=== PATIENT | male | born 1970 | race Caucasian/White ===

== ENCOUNTER 2017-08-31 05:47 | Observation (INO) | payer SELFPAY ==
--- NOTE | 2017-08-31 05:53 | EDM.PDOC ---
ED HPI GENERAL MEDICAL PROBLEM - General Stated Complaint: TOOTH PAIN, DIZZINESS, PASSED OUT Time Seen by Provider: 08/31/17 05:48 Source of Information: Reports: Patient History Limitations: Reports: No Limitations - History of Present Illness INITIAL COMMENTS - FREE TEXT/NARRATIVE: 47 year old male presents to ED with complaints of Tooth pain and syncope. He is from [facility] and is here in [place] working in [employer]. He lives out of his truck. He states that he woke up at around 4:30 am this morning with severe pain in his left upper teeth. He has had mild intermittent pain of his left upper canine and first premolar for several months but this pain was worst than he has experience before. Once pain began he stepped out of his truck and felt dizzy then had unwitnessed LOC. When he regained consciousness he had a cut on the top of his head. He had complete memory up until the syncopal episode. He denies any tongue biting or urine/stool incontinence during the syncopal period and denies any confusion or vomiting since regaining consciousness. He felt nauseous prior to passing out and after waking up. He denies any known pmh and does not take any medications. He denies use of alcohol or tobacco. dental pain Pain Score (Numeric/FACES): 8 - Related Data Allergies Allergy/AdvReac Type Severity Reaction Status Date / Time No Known Allergies Allergy Verified 08/31/17 06:01 Home Meds: Home Meds . [No Known Home Meds] 08/31/17 [History] ED ROS GENERAL - Review of Systems Review Of Systems: See Below Constitutional: Reports: No Symptoms HEENT: Reports: Other (Tooth Pain) Respiratory: Reports: No Symptoms Cardiovascular: Reports: Lightheadedness, Syncope Endocrine: Reports: No Symptoms GI/Abdominal: Reports: No Symptoms : Reports: No Symptoms Musculoskeletal: Reports: No Symptoms Skin: Reports: No Symptoms Neurological: Reports: Dizziness Psychiatric: Reports: No Symptoms Hematologic/Lymphatic: Reports: No Symptoms Immunologic: Reports: No Symptoms ED EXAM, GENERAL - Physical Exam Exam: See Below Exam Limited By: No Limitations General Appearance: Alert, WD/WN, No Apparent Distress Eye Exam: Bilateral Eye: PERRL Ears: Normal External Exam, Normal Canal, Hearing Grossly Normal, Normal TMs Nose: Normal Inspection, Normal Mucosa, No Blood Throat/Mouth: Other (mutiple dental caries involving Left canine, Left 1st premolar and left 2nd premolar. No visible Abscess or induration. ) Head: Normocephalic, Other (small longitudinal abrasion, 2-3 cm long, present on top of skull, not actively bleeding ) Neck: Normal Inspection, Supple, Non-Tender, Full Range of Motion Respiratory/Chest: No Respiratory Distress, Lungs Clear, Normal Breath Sounds Cardiovascular: Normal Peripheral Pulses, Regular Rate, Rhythm, No Edema Peripheral Pulses: 2+: Radial (L), Radial (R) GI/Abdominal: Normal Bowel Sounds, Soft, Non-Tender, No Organomegaly, No Distention Back Exam: Normal Inspection Extremities: Normal Inspection, Normal Capillary Refill Neurological: Alert, Oriented, CN II-XII Intact, Normal Cognition, Normal Gait Psychiatric: Normal Affect, Normal Mood Skin Exam: Warm, Dry, Intact, Normal Color, No Rash Lymphatic: No Adenopathy Course - Vital Signs Last Recorded V/S: Last Vital Signs Temp 36 C 08/31/17 06:01 Pulse 56 L 08/31/17 06:37 Resp 18 08/31/17 06:37 BP 101/63 08/31/17 06:37 Pulse Ox 99 08/31/17 06:37 Orthostatic Blood Pressure [ 89/63 Standing] Orthostatic Blood Pressure [ 94/64 Sitting] Orthostatic Blood Pressure [ 97/63 Supine] - Orders/Labs/Meds Orders: Active Orders 24 hr Category Date Time Status EKG 12 Lead [EKG Documentation Completion] [RC] STAT Care 08/31/17 06:05 Active Orthostatic Vital Signs [RC] ASDIRECTED Care 08/31/17 06:10 Active Chest 1V Frontal [CR] Stat Exams 08/31/17 06:04 Taken Head wo Cont [CT] Stat Exams 08/31/17 06:04 Taken UA W/MICROSCOPIC [URIN] Stat Lab 08/31/17 06:10 Uncollected Clindamycin Phosphate in D5W [Cleocin in D5W] 300 mg Med 08/31/17 06:59 Active Premix Bag 1 bag IV ONETIME Medication Orders Clindamycin Phosphate 300 mg/ (Premix) 50 mls @ 150 mls/hr IV ONETIME ONE Stop: 08/31/17 07:18 Last Admin: 08/31/17 07:07 Dose: 150 mls/hr Labs: Laboratory Tests 08/31/17 08/31/17 Range/Units 06:06 06:06 WBC 7.56 (4.0-11.0) K/uL RBC 5.13 (4.50-5.90) M/uL Hgb 16.6 (13.0-17.0) g/dL Hct 46.5 (38.0-50.0) % MCV 90.6 (80.0-98.0) fL MCH 32.4 H (27.0-32.0) pg MCHC 35.7 (31.0-37.0) g/dL RDW Std Deviation 42.7 (28.0-62.0) fl RDW Coeff of Shruti 13 (11.0-15.0) % Plt Count 178 (150-400) K/uL MPV 10.30 (7.40-12.00) fL Neut % (Auto) 60.0 (48.0-80.0) % Lymph % (Auto) 28.4 (16.0-40.0) % [place] % (Auto) 7.5 (0.0-15.0) % Eos % (Auto) 3.4 (0.0-7.0) % Baso % (Auto) 0.7 (0.0-1.5) % Neut # (Auto) 4.5 (1.4-5.7) K/uL Lymph # (Auto) 2.2 (0.6-2.4) K/uL [place] # (Auto) 0.6 (0.0-0.8) K/uL Eos # (Auto) 0.3 (0.0-0.7) K/uL Baso # (Auto) 0.1 (0.0-0.1) K/uL Nucleated RBC % 0.0 /100WBC Nucleated RBCs # 0 K/uL Sodium 139 (136-146) mmol/L Potassium 3.7 (3.5-5.1) mmol/L Chloride 105 (98-110) mmol/L Carbon Dioxide 27 (21-31) mmol/L BUN 15 (6.0-23.0) mg/dL Creatinine 1.0 (0.6-1.5) mg/dL Est Cr Clr Drug Dosing 97.26 mL/min Estimated GFR (MDRD) > 60.0 ml/min Glucose 113 H (60-110) mg/dL Calcium 9.1 (8.8-10.8) mg/dL Total Bilirubin 1.0 (0.1-1.5) mg/dL AST 20 (5-40) IU/L ALT 20 (8-54) IU/L Alkaline Phosphatase 53 (40-150) Troponin I < 0.10 (0.0-0.29) NG/ML Total Protein 7.1 (6.0-8.0) g/dL Albumin 4.2 (3.5-5.0) g/dL Globulin 2.9 (2.0-3.5) g/dL Albumin/Globulin Ratio 1.4 (1.3-2.8) Meds: Medications Generic Name Dose Route Start Last Admin Trade Name Freq PRN Reason Stop Dose Admin Clindamycin Phosphate 300 mg/ 50 mls @ 150 mls/hr 08/31/17 06:59 08/31/17 07: 07 Premix IV 08/31/17 07:18 150 mls/hr ONETIME ONE Administration Discontinued Medications Generic Name Dose Route Start Last Admin Trade Name Freq PRN Reason Stop Dose Admin Sodium Chloride 1,000 mls @ 999 mls/hr 08/31/17 06:09 08/31/17 06:10 Normal Saline IV 08/31/17 07:09 999 mls/hr .Bolus ONE Administration Clindamycin Phosphate 300 mg/ 52 mls @ 100 mls/hr 08/31/17 07:00 08/31/17 07: 04 Sodium Chloride IV Not Given Q6H HARINDER Departure - Departure Time of Disposition: 07:15 Disposition: Refer to Observation Clinical Impression: Syncope, Hypotension, Tooth pain - Discharge Information Referrals: PCP,None [Primary Care Provider] - Additional Instructions: The following information is given to patients seen in the emergency department who are being discharged to home. This information is to outline your options for follow-up care. We provide all patients seen in our emergency department with a follow-up referral. The need for follow-up, as well as the timing and circumstances, are variable depending upon the specifics of your emergency department visit. If you don't have a primary care physician on staff, we will provide you with a referral. We always advise you to contact your personal physician following an emergency department visit to inform them of the circumstance of the visit and for follow-up with them and/or the need for any referrals to a consulting specialist. The emergency department will also refer you to a specialist when appropriate. This referral assures that you have the opportunity for followup care with a specialist. All of these measure are taken in an effort to provide you with optimal care, which includes your followup. Under all circumstances we always encourage you to contact your private physician who remains a resource for coordinating your care. When calling for followup care, please make the office aware that this follow-up is from your recent emergency room visit. If for any reason you are refused follow-up, please contact the [facility] emergency department at and asked to speak to the emergency department charge nurse. - Problem List Review Problem List Initiated/Reviewed/Updated: Yes - My Orders Last 24 Hours: My Active Orders 08/31/17 06:04 Chest 1V Frontal [CR] Stat Head wo Cont [CT] Stat 08/31/17 06:05 EKG 12 Lead [EKG Documentation Completion] [RC] STAT 08/31/17 06:59 Clindamycin Phosphate in D5W [Cleocin in D5W] 300 mg Premix Bag 1 bag IV ONETIME - Assessment/Plan Last 24 Hours: My Active Orders 08/31/17 06:04 Chest 1V Frontal [CR] Stat Head wo Cont [CT] Stat 08/31/17 06:05 EKG 12 Lead [EKG Documentation Completion] [RC] STAT 08/31/17 06:59 Clindamycin Phosphate in D5W [Cleocin in D5W] 300 mg Premix Bag 1 bag IV ONETIME Assessment:: Diagnostics: CMP, Troponin, UA, EKG, CXR, CT Head wo Contrast Therapeutics: IVF, Clindamycin 300 mg IV single dose Assessment: 1. Syncope 2. Hypotension 3. Head Abrasion 4. Tooth Pain Plan: Admit to observation with telemetry - patient has been accepted by Dr. Jerez
[2017-08-31] MEDS ORDERED: Sodium Chloride 0.9% 1,000 ML IV ONE (06:09)
[2017-08-31 06:36] LABS: CHLORIDE,CL 105 mmol/L (98-110); SODIUM,NA 139 mmol/L (136-146)
[2017-08-31] MEDS ORDERED: Clindamycin Phosphate in D5W 300 MG in Premix Bag 1 BAG IV ONE ×2 (06:59)
[2017-08-31] MEDS ORDERED: Morphine 2 MG/ML Syringe IVPUSH PRN (09:44)
[2017-08-31] MEDS ORDERED: Sodium Chloride 0.9% 10 ML Syringe FLUSH PRN (09:44)
[2017-08-31] MEDS ORDERED: Albuterol/Ipratropium 3.0-0.5 MG/3 ML Neb Soln NEB PRN (09:44)
[2017-08-31] MEDS ORDERED: Acetaminophen 325 MG Tab PO PRN (09:44)
[2017-08-31] MEDS ORDERED: Sodium Chloride 0.9% 2.5 ML Syringe FLUSH PRN (09:44)
[2017-08-31] MEDS ORDERED: Ondansetron 4 MG/2 ML SDV IVPUSH PRN (09:44)
[2017-08-31] MEDS: Clindamycin Phosphate in D5W 300 MG in Premix Bag 1 BAG IV SCH ×4 (13:15→18:18)
--- NOTE | 2017-08-31 14:27 | PCM.HP ---
<Shania Canales - Last Filed: 08/31/17 14:22> H&P History of Present Illness - General Date of Service: 08/31/17 Admit Problem/Dx: Admission Diagnosis/Problem Admission Diagnosis/Problem Hypotension - History of Present Illness Initial Comments - Free Text/Narative: 47 year old male presents to ED with complaints of Tooth pain and syncope x 2. He is from [facility] and is here in [place] working in [employer]. He lives out of his truck. He states that he woke up at around 4:30 am this morning with severe pain in his left upper teeth. He has had mild intermittent pain of his left upper canine and first premolar for several months but this pain was worst than he has experience before. Once pain began he stepped out of his truck and felt dizzy then had unwitnessed LOC. When he regained consciousness he had a cut on the top of his head. he does not know if he fell. He had complete memory up until the syncopal episode. He denies any tongue biting or urine/stool incontinence during the syncopal period and denies any confusion or vomiting since regaining consciousness. He felt nauseous prior to passing out and after waking up. He denies any known pmh and does not take any medications. He denies use of alcohol, tobacco or recreational drugs. He never had symptoms like this before. He does not have any other medical comorbidiites such as DM, CAD, COPD or other medical illness. He is otherwise healthy. He has not had any surgeries in the past. dental pain Pain Score (Numeric/FACES): 8 - Related Data Allergies/Adverse Reactions: Allergies Allergy/AdvReac Type Severity Reaction Status Date / Time No Known Allergies Allergy Verified 08/31/17 06:01 Home Medications: Home Meds . [No Known Home Meds] 08/31/17 [History] Past Medical History HEENT History: Reports: None Cardiovascular History: Reports: None Respiratory History: Reports: None Gastrointestinal History: Reports: None Genitourinary History: Reports: None Musculoskeletal History: Reports: None Neurological History: Reports: None Psychiatric History: Reports: None Endocrine/Metabolic History: Reports: None Hematologic History: Reports: None Immunologic History: Reports: None Oncologic (Cancer) History: Reports: None Dermatologic History: Reports: None - Infectious Disease History Infectious Disease History: Reports: None - Past Surgical History Head Surgeries/Procedures: Reports: None Social & Family History - Family History Family Medical History: Noncontributory - Tobacco Use Smoking Status *Q: Never Smoker Second Hand Smoke Exposure: No - Caffeine Use Caffeine Use: Reports: Coffee - Recreational Drug Use Recreational Drug Use: No H&P Review of Systems - Review of Systems: Review Of Systems: See Below General: Reports: No Symptoms HEENT: Reports: Other (left sided tooth ache. ) Pulmonary: Reports: No Symptoms Cardiovascular: Reports: No Symptoms Gastrointestinal: Reports: No Symptoms Genitourinary: Reports: No Symptoms Musculoskeletal: Reports: No Symptoms Skin: Reports: No Symptoms Psychiatric: Reports: No Symptoms Neurological: Reports: No Symptoms Immunologic: Reports: No Symptoms Exam - Exam Exam: See Below - Vital Signs Vital Signs: Last Vital Signs Temp 97.5 F 08/31/17 07:50 Pulse 76 08/31/17 07:50 Resp 18 08/31/17 07:50 BP 108/74 08/31/17 07:50 Pulse Ox 98 08/31/17 07:50 Weight: 187 lb 8 oz - Exam General: Alert, Oriented HEENT: EOMI, Hearing Intact, Other (left side tooth ache and tendeness. ginival inflammation. No evidence of fluctuant mass) Neck: Supple, Trachea Midline Lungs: Clear to Auscultation, Normal Respiratory Effort Cardiovascular: Regular Rate, Regular Rhythm GI/Abdominal Exam: Normal Bowel Sounds, Soft Back Exam: Normal Inspection Extremities: Normal Inspection Skin: Warm, Dry, Intact Neurological: Cranial Nerves Intact Neuro Extensive - Motor, Sensory, Reflexes: CN II-XII Intact Psychiatric: Alert, Normal Affect, Normal Mood - Patient Data Lab Results Last 24 hrs: Laboratory Results - last 24 hr 08/31/17 08/31/17 08/31/17 Range/Units 11:26 11:31 13:13 POC Glucose 86 (60-110) mg/dL Troponin I < 0.10 (0.0-0.29) NG/ML Urine Color YELLOW Urine Appearance CLEAR Urine pH 7.0 (5.0-8.0) Ur Specific [place] <= 1.005 (1.001-1.035) Urine Protein NEGATIVE (NEGATIVE) mg/dL Urine Glucose (UA) NEGATIVE (NEGATIVE) mg/dL Urine Ketones NEGATIVE (NEGATIVE) mg/dL Urine Occult Blood NEGATIVE (NEGATIVE) Urine Nitrite NEGATIVE (NEGATIVE) Urine Bilirubin NEGATIVE (NEGATIVE) Urine Urobilinogen 0.2 (<2.0) EU/dL Ur Leukocyte Esterase NEGATIVE (NEGATIVE) Urine RBC 0-1 (0-2/HPF) Urine WBC 0-1 (0-5/HPF) Ur Epithelial Cells RARE (NONE-FEW) Urine Bacteria RARE (NEGATIVE) Result Diagrams: 08/31/17 06:06 08/31/17 06:06 *Q Meaningful Use (ADM) - VTE *Q VTE Criteria *Q: - Stroke *Q Stroke Criteria *Q: - AMI *Q AMI Criteria *Q: Problem List Initiated/Reviewed/Updated: Yes Orders Last 24hrs: Active Orders 24 hr Category Date Time Status Patient Status [ADT] Routine ADT 08/31/17 09:44 Active Bedrest Bathroom Privileges [RC] ASDIRECTED Care 08/31/17 09:44 Active Blood Glucose Check, Bedside [RC] WITHMEALSANDBED Care 08/31/17 09:44 Active Cardiac Monitoring [RC] CONTINUOUS Care 08/31/17 09:47 Active Oxygen Therapy [RC] PRN Care 08/31/17 09:44 Active Pulse Oximetry [RC] PRN Care 08/31/17 09:48 Active RT Aerosol Therapy [RC] ASDIRECTED Care 08/31/17 09:50 Active Telemetry Monitoring [Cardiac Monitoring] [RC] . Care 08/31/17 09:52 Active DIRECTED VTE/DVT Education [RC] PER UNIT ROUTINE Care 08/31/17 09:44 Active Vital Signs [RC] Q4H Care 08/31/17 09:44 Active 2 Gram Sodium Diet [DIET] Diet 08/31/17 Breakfast Active BASIC METABOLIC PANEL,BMP [CHEM] AM Lab 09/01/17 05:11 Ordered BASIC METABOLIC PANEL,BMP [CHEM] AM Lab 09/02/17 05:11 Ordered BASIC METABOLIC PANEL,BMP [CHEM] AM Lab 09/03/17 05:11 Ordered BASIC METABOLIC PANEL,BMP [CHEM] AM Lab 09/04/17 05:11 Ordered CBC W/O DIFF,HEMOGRAM [HEME] AM Lab 09/01/17 05:11 Ordered CBC W/O DIFF,HEMOGRAM [HEME] AM Lab 09/02/17 05:11 Ordered CBC W/O DIFF,HEMOGRAM [HEME] AM Lab 09/03/17 05:11 Ordered TROPONIN I [CHEM] Q6H Lab 08/31/17 19:02 Ordered Acetaminophen [Tylenol] Med 08/31/17 09:44 Active 650 mg PO Q4H PRN Albuterol/Ipratropium [DuoNeb 3.0-0.5 MG/3 ML] Med 08/31/17 09:44 Active 3 ml NEB Q4HRRT PRN Clindamycin Phosphate in D5W [Cleocin in D5W] 300 mg Med 08/31/17 13:15 Active Premix Bag 1 bag IV Q6H Enoxaparin [Lovenox] Med 09/01/17 09:00 Active 40 mg SUBCUT DAILY Morphine Med 08/31/17 09:44 Active 2 mg IVPUSH Q2H PRN Ondansetron [Zofran] Med 08/31/17 09:44 Active 4 mg IVPUSH Q4H PRN Sodium Chloride 0.9% [Saline Flush] Med 08/31/17 09:44 Active 10 ml FLUSH ASDIRECTED PRN Sodium Chloride 0.9% [Saline Flush] Med 08/31/17 09:44 Active 2.5 ml FLUSH ASDIRECTED PRN Peripheral IV Insertion Adult [OM.PC] Routine Oth 08/31/17 09:44 Ordered Saline Lock Insert [OM.PC] Routine Oth 08/31/17 09:44 Ordered Resuscitation Status Routine Resus Stat 08/31/17 09:44 Ordered Medication Orders Acetaminophen (Tylenol) 650 mg PO Q4H PRN PRN Reason: Pain (Mild 1-3)/fever Last Admin: 08/31/17 12:08 Dose: 650 mg Albuterol/Ipratropium (Duoneb 3.0-0.5 Mg/3 Ml) 3 ml NEB Q4HRRT PRN PRN Reason: Shortness Of Breath/wheezing Enoxaparin Sodium (Lovenox) 40 mg SUBCUT DAILY HARINDER Clindamycin Phosphate 300 mg/ (Premix) 50 mls @ 100 mls/hr IV Q6H HARINDER Last Admin: 08/31/17 13:15 Dose: 100 mls/hr Morphine Sulfate (Morphine) 2 mg IVPUSH Q2H PRN PRN Reason: Pain (severe 7-10) Stop: 09/01/17 09:49 Ondansetron HCl (Zofran) 4 mg IVPUSH Q4H PRN PRN Reason: Nausea Sodium Chloride (Saline Flush) 10 ml FLUSH ASDIRECTED PRN PRN Reason: Keep Vein Open Sodium Chloride (Saline Flush) 2.5 ml FLUSH ASDIRECTED PRN PRN Reason: Keep Vein Open Assessment/Plan Comment:: 47 yo male admitted for tooth pulpitiis/ givngivitis VSS: no fever, no tachycardia. wbc normal. Continue IVF and IV clindaymcin Sycope: resolved. <Ge Jerez - Last Filed: 08/31/17 22:15> H&P History of Present Illness - General Admit Problem/Dx: Admission Diagnosis/Problem Admission Diagnosis/Problem Hypotension Exam - Vital Signs Vital Signs: Last Vital Signs Temp 97.8 F 08/31/17 20:00 Pulse 70 08/31/17 20:00 Resp 18 08/31/17 20:00 BP 107/71 08/31/17 20:00 Pulse Ox 97 08/31/17 20:00 Orthostatic Blood Pressure [ 94/59 Standing] Orthostatic Blood Pressure [ 94/55 Sitting] Orthostatic Blood Pressure [ 85/35 Supine] - Patient Data Lab Results Last 24 hrs: Laboratory Results - last 24 hr 08/31/17 08/31/17 08/31/17 Range/Units 11:26 11:31 13:13 POC Glucose 86 (60-110) mg/dL Troponin I < 0.10 (0.0-0.29) NG/ML Urine Color YELLOW Urine Appearance CLEAR Urine pH 7.0 (5.0-8.0) Ur Specific [place] <= 1.005 (1.001-1.035) Urine Protein NEGATIVE (NEGATIVE) mg/dL Urine Glucose (UA) NEGATIVE (NEGATIVE) mg/dL Urine Ketones NEGATIVE (NEGATIVE) mg/dL Urine Occult Blood NEGATIVE (NEGATIVE) Urine Nitrite NEGATIVE (NEGATIVE) Urine Bilirubin NEGATIVE (NEGATIVE) Urine Urobilinogen 0.2 (<2.0) EU/dL Ur Leukocyte Esterase NEGATIVE (NEGATIVE) Urine RBC 0-1 (0-2/HPF) Urine WBC 0-1 (0-5/HPF) Ur Epithelial Cells RARE (NONE-FEW) Urine Bacteria RARE (NEGATIVE) 08/31/17 08/31/17 Range/Units 17:17 18:50 POC Glucose 75 (60-110) mg/dL Troponin I < 0.10 (0.0-0.29) NG/ML Urine Color Urine Appearance Urine pH (5.0-8.0) Ur Specific [place] (1.001-1.035) Urine Protein (NEGATIVE) mg/dL Urine Glucose (UA) (NEGATIVE) mg/dL Urine Ketones (NEGATIVE) mg/dL Urine Occult Blood (NEGATIVE) Urine Nitrite (NEGATIVE) Urine Bilirubin (NEGATIVE) Urine Urobilinogen (<2.0) EU/dL Ur Leukocyte Esterase (NEGATIVE) Urine RBC (0-2/HPF) Urine WBC (0-5/HPF) Ur Epithelial Cells (NONE-FEW) Urine Bacteria (NEGATIVE) Result Diagrams: 08/31/17 06:06 08/31/17 06:06 *Q Meaningful Use (ADM) - VTE *Q VTE Criteria *Q: - Stroke *Q Stroke Criteria *Q: - AMI *Q AMI Criteria *Q: - Problem List (1) Hypotension SNOMED Code(s): 46339799 ICD Code: I95.9 - HYPOTENSION, UNSPECIFIED Status: Acute Current Visit: Yes (2) Syncope SNOMED Code(s): 883996399 ICD Code: R55 - SYNCOPE AND COLLAPSE Status: Acute Current Visit: Yes (3) Tooth pain SNOMED Code(s): 38602736 ICD Code: K08.89 - OTHER SPECIFIED DISORDERS OF TEETH AND SUPPORTING STRUCTURES Status: Acute Current Visit: Yes Problem List Initiated/Reviewed/Updated: Yes Orders Last 24hrs: Active Orders 24 hr Category Date Time Status Patient Status [ADT] Routine ADT 08/31/17 09:44 Active Bedrest Bathroom Privileges [RC] ASDIRECTED Care 08/31/17 09:44 Active Blood Glucose Check, Bedside [RC] WITHMEALSANDBED Care 08/31/17 09:44 Active Neuro Check [RC] Q2HR Care 08/31/17 18:08 Active Orthostatic Vital Signs [RC] ASDIRECTED Care 08/31/17 18:10 Active Oxygen Therapy [RC] PRN Care 08/31/17 09:44 Active Pulse Oximetry [RC] PRN Care 08/31/17 09:48 Active RT Aerosol Therapy [RC] ASDIRECTED Care 08/31/17 09:50 Active Telemetry Monitoring [Cardiac Monitoring] [RC] Q8H Care 08/31/17 09:52 Active VTE/DVT Education [RC] PER UNIT ROUTINE Care 08/31/17 09:44 Active Vital Signs [RC] Q4H Care 08/31/17 09:44 Active 2 Gram Sodium Diet [DIET] Diet 08/31/17 Breakfast Active Echo 2D wo Cont [US] Routine Exams 08/31/17 18:06 Ordered VL Duplex Carotid Ltd Lt [US] Routine Exams 08/31/17 18:07 Ordered VL Duplex Carotid Ltd Rt [US] Routine Exams 08/31/17 18:07 Ordered BASIC METABOLIC PANEL,BMP [CHEM] AM Lab 09/01/17 05:11 Ordered BASIC METABOLIC PANEL,BMP [CHEM] AM Lab 09/02/17 05:11 Ordered BASIC METABOLIC PANEL,BMP [CHEM] AM Lab 09/03/17 05:11 Ordered BASIC METABOLIC PANEL,BMP [CHEM] AM Lab 09/04/17 05:11 Ordered CBC W/O DIFF,HEMOGRAM [HEME] AM Lab 09/01/17 05:11 Ordered CBC W/O DIFF,HEMOGRAM [HEME] AM Lab 09/02/17 05:11 Ordered CBC W/O DIFF,HEMOGRAM [HEME] AM Lab 09/03/17 05:11 Ordered LIPID PANEL [CHEM] Routine Lab 09/01/17 05:10 Ordered Acetaminophen [Tylenol] Med 08/31/17 09:44 Active 650 mg PO Q4H PRN Albuterol/Ipratropium [DuoNeb 3.0-0.5 MG/3 ML] Med 08/31/17 09:44 Active 3 ml NEB Q4HRRT PRN Clindamycin Phosphate in D5W [Cleocin in D5W] 300 mg Med 08/31/17 13:15 Active Premix Bag 1 bag IV Q6H Enoxaparin [Lovenox] Med 09/01/17 09:00 Active 40 mg SUBCUT DAILY Ketorolac [Toradol] Med 08/31/17 19:34 Active 30 mg IVPUSH Q6H PRN Morphine Med 08/31/17 09:44 Active 2 mg IVPUSH Q2H PRN Ondansetron [Zofran] Med 08/31/17 09:44 Active 4 mg IVPUSH Q4H PRN Sodium Chloride 0.9% [Normal Saline] 1,000 ml Med 08/31/17 19:45 Active IV ASDIRECTED Sodium Chloride 0.9% [Saline Flush] Med 08/31/17 09:44 Active 10 ml FLUSH ASDIRECTED PRN Sodium Chloride 0.9% [Saline Flush] Med 08/31/17 09:44 Active 2.5 ml FLUSH ASDIRECTED PRN Peripheral IV Insertion Adult [OM.PC] Routine Oth 08/31/17 09:44 Ordered Saline Lock Insert [OM.PC] Routine Oth 08/31/17 09:44 Ordered Resuscitation Status Routine Resus Stat 08/31/17 09:44 Ordered Medication Orders Acetaminophen (Tylenol) 650 mg PO Q4H PRN PRN Reason: Pain (Mild 1-3)/fever Last Admin: 08/31/17 12:08 Dose: 650 mg Albuterol/Ipratropium (Duoneb 3.0-0.5 Mg/3 Ml) 3 ml NEB Q4HRRT PRN PRN Reason: Shortness Of Breath/wheezing Enoxaparin Sodium (Lovenox) 40 mg SUBCUT DAILY [facility] Clindamycin Phosphate 300 mg/ (Premix) 50 mls @ 100 mls/hr IV Q6H [facility] Last Admin: 08/31/17 18:18 Dose: 100 mls/hr Infusion: 08/31/17 13:45 Dose: 100 mls/hr Admin: 08/31/17 13:15 Dose: 100 mls/hr Sodium Chloride (Normal Saline) 1,000 mls @ 999 mls/hr IV ASDIRECTED [facility] Ketorolac Tromethamine (Toradol) 30 mg IVPUSH Q6H PRN PRN Reason: Pain Stop: 09/05/17 19:34 Morphine Sulfate (Morphine) 2 mg IVPUSH Q2H PRN PRN Reason: Pain (severe 7-10) Stop: 09/01/17 09:49 Ondansetron HCl (Zofran) 4 mg IVPUSH Q4H PRN PRN Reason: Nausea Sodium Chloride (Saline Flush) 10 ml FLUSH ASDIRECTED PRN PRN Reason: Keep Vein Open Sodium Chloride (Saline Flush) 2.5 ml FLUSH ASDIRECTED PRN PRN Reason: Keep Vein Open Assessment/Plan Comment:: A/p syncope- likely due to hypotensionadmit patient to telemetry to monitor for arrhythmia, orthostatic Vs, urine toxicology, carotid doppler , serial troponins , neurochecks q2h , cardiac echo , iv fluids Hypotension: iv fluids, f/up Bp Tooth infection: clindamycin 600mg iv q8h , toradol 30 mg iv q 6 hprn for pain Dvt prof: heparin sq Head trauma- neurochecks q2h for 24h Patient seen and examined . Discussed patient with resident.
[2017-08-31] MEDS ORDERED: Ketorolac 30 MG/ML SDV IVPUSH PRN (19:34)
[2017-08-31] MEDS ORDERED: Sodium Chloride 0.9% 1,000 ML IV SCH (19:45)
[2017-09-01] MEDS: Clindamycin Phosphate in D5W 300 MG in Premix Bag 1 BAG IV SCH ×4 (00:55→06:46)
[2017-09-01 06:58] LABS: CHLORIDE,CL 108 mmol/L (98-110); SODIUM,NA 140 mmol/L (136-146)
[2017-09-01] MEDS ORDERED: Sodium Chloride 0.9% 1,000 ML IV SCH (08:45)
[2017-09-01] MEDS ORDERED: Enoxaparin 40 MG/0.4 ML Syringe SUBCUT SCH (09:00)
--- NOTE | 2017-09-01 11:56 | CR ---
EXAM DATE: 08/31/17 PATIENT'S AGE: 47 Patient: JUAN CABALLERO Facility: [place], [place] Site . Site : 1970 Study: XRay Chest [id number] 6:33:00 AM Ordering Physician: Sarah Patel Final Report: Indication: Syncope Technique: Chest 1 view Comparison: None Findings/Impression: Cardiovascular and mediastinum: Heart size and vasculature are normal in caliber and appearance. Mediastinum is within normal limits. Lungs and pleural space: Lungs are clear. No sign of infiltrate or mass. No sign of pleural effusion. No pneumothorax. Bones and soft tissues: No significant findings. Dictated by Jessy Pinto MD @ Aug 31 2017 6:52AM (Electronic Signature) Report Signed by Proxy. DOLORES
--- NOTE | 2017-09-01 11:57 | CT ---
EXAM DATE: 08/31/17 PATIENT'S AGE: 47 Patient: JUAN CABALLERO Facility: [place], [place] Site . Site : 1970 Study: CT Head [id number] 6:34:35 AM Ordering Physician: Sarah Patel Final Report: INDICATION: Syncope. TECHNIQUE: CT Head without contrast. COMPARISON: None FINDINGS: CSF spaces: Within normal limits for age. Brain parenchyma: The hutson-white differentiation is normal. No sign of mass, hemorrhage, or midline shift. Skull base and calvarium: Moderate mucosal thickening and several ethmoid air cells. The remainder of the visualized paranasal sinuses and mastoid air cells are clear. The visualized orbits are grossly unremarkable. No skull fractures. IMPRESSION: No acute intracranial abnormality. Dictated by Nabeel Austin MD @ 08/31/2017 7:01:18 AM Dictated by: Nabeel Austin MD @ 08/31/2017 07:01:31 (Electronic Signature) Report Signed by Proxy. DOLORES
--- NOTE | 2017-09-01 14:44 | PCM.DCSUM1 ---
<Shania Canales - Last Filed: 09/01/17 15:20> Discharge Summary - Hospital Course Free Text/Narrative:: 47 yo male admitted for syncope x 2 . He does not recall if lost consciousness. He was monitored on telemetry ( no arrythmias noted). His EKG unremarkable. His blood pressure is found to be on the low side.90/ 50 s HR 50's. His ortho stats normal. ECHO and carotid us pending. He was found to have left sided tooth infection whcih was treated with I.V clindamycin. He improved. He was discharged in stable conditon. VSS . He is to follow up with me in clinic . He is discharged with clindamycin. He is to follow up with dentist in one week or sooner. - Discharge Data Discharge Date: 09/01/17 Discharge Disposition: Home, Self-Care 01 Condition: Good - Discharge Plan Prescriptions/Med Rec: Clindamycin HCl [Cleocin HCl] 300 mg PO TID #24 capsule Ibuprofen 600 mg PO TID #30 tablet Home Medications: Home Meds Clindamycin HCl [Cleocin HCl] 300 mg PO TID #24 capsule 09/01/17 [Rx] Ibuprofen 600 mg PO TID #30 tablet 09/01/17 [Rx] Patient Handouts: Ibuprofen tablets and capsules, Clindamycin capsules Forms: ED Department Discharge Referrals: Shania Canales MD [Resident] - 09/12/17 2:30 pm - General Info Subjective Update: No episode of syncope or lightheadeness. - Review of Systems General: Reports: No Symptoms HEENT: Reports: No Symptoms Pulmonary: Reports: No Symptoms Cardiovascular: Reports: No Symptoms Gastrointestinal: Reports: No Symptoms Musculoskeletal: Reports: No Symptoms Skin: Reports: No Symptoms Neurological: Reports: No Symptoms - Patient Data Vitals - Most Recent: Last Vital Signs Temp 98.2 F 09/01/17 07:58 Pulse 72 09/01/17 07:58 Resp 16 09/01/17 04:00 BP 94/55 L 09/01/17 07:58 Pulse Ox 93 L 09/01/17 04:00 Orthostatic Blood Pressure [ 102/77 Standing] Orthostatic Blood Pressure [ 105/61 Sitting] Orthostatic Blood Pressure [ 99/57 Supine] Weight - Most Recent: 187 lb 8 oz I&O - Last 24 hours: Intake & Output 08/31/17 09/01/17 09/01/17 22:59 06:59 14:59 Intake Total 670 50 Output Total 380 300 Balance 290 -250 Lab Results - Last 24 hrs: Laboratory Results - last 24 hr 08/31/17 08/31/17 08/31/17 Range/Units 17:17 18:50 20:49 WBC (4.0-11.0) K/uL RBC (4.50-5.90) M/uL Hgb (13.0-17.0) g/dL Hct (38.0-50.0) % MCV (80.0-98.0) fL MCH (27.0-32.0) pg MCHC (31.0-37.0) g/dL RDW Std Deviation (28.0-62.0) fl RDW Coeff of Shruti (11.0-15.0) % Plt Count (150-400) K/uL MPV (7.40-12.00) fL Nucleated RBC % /100WBC Nucleated RBCs # K/uL Sodium (136-146) mmol/L Potassium (3.5-5.1) mmol/L Chloride (98-110) mmol/L Carbon Dioxide (21-31) mmol/L BUN (6.0-23.0) mg/dL Creatinine (0.6-1.5) mg/dL Est Cr Clr Drug Dosing mL/min Estimated GFR (MDRD) ml/min Glucose (60-110) mg/dL POC Glucose 75 83 (60-110) mg/dL Calcium (8.8-10.8) mg/dL Troponin I < 0.10 (0.0-0.29) NG/ML Triglycerides (10-190) mg/dL Cholesterol (131-240) mg/dL LDL Cholesterol, Calc (60-180) mg/dL VLDL Cholesterol (5-55) mg/dL HDL Cholesterol (40-80) mg/dL Cholesterol/HDL Ratio (3.3-6.0) 09/01/17 09/01/17 09/01/17 Range/Units 05:36 06:07 06:07 WBC 6.68 (4.0-11.0) K/uL RBC 4.76 (4.50-5.90) M/uL Hgb 15.1 (13.0-17.0) g/dL Hct 43.8 (38.0-50.0) % MCV 92.0 (80.0-98.0) fL MCH 31.7 (27.0-32.0) pg MCHC 34.5 (31.0-37.0) g/dL RDW Std Deviation 43.8 (28.0-62.0) fl RDW Coeff of Shruti 13 (11.0-15.0) % Plt Count 167 (150-400) K/uL MPV 10.30 (7.40-12.00) fL Nucleated RBC % 0.0 /100WBC Nucleated RBCs # 0 K/uL Sodium 140 (136-146) mmol/L Potassium 4.2 (3.5-5.1) mmol/L Chloride 108 (98-110) mmol/L Carbon Dioxide 25 (21-31) mmol/L BUN 17 (6.0-23.0) mg/dL Creatinine 1.0 (0.6-1.5) mg/dL Est Cr Clr Drug Dosing 97.26 mL/min Estimated GFR (MDRD) > 60.0 ml/min Glucose 93 (60-110) mg/dL POC Glucose 91 (60-110) mg/dL Calcium 8.6 L (8.8-10.8) mg/dL Troponin I (0.0-0.29) NG/ML Triglycerides 85 (10-190) mg/dL Cholesterol 138 (131-240) mg/dL LDL Cholesterol, Calc 87 (60-180) mg/dL VLDL Cholesterol 17 (5-55) mg/dL HDL Cholesterol 34 L (40-80) mg/dL Cholesterol/HDL Ratio 4.1 (3.3-6.0) 09/01/17 Range/Units 11:26 WBC (4.0-11.0) K/uL RBC (4.50-5.90) M/uL Hgb (13.0-17.0) g/dL Hct (38.0-50.0) % MCV (80.0-98.0) fL MCH (27.0-32.0) pg MCHC (31.0-37.0) g/dL RDW Std Deviation (28.0-62.0) fl RDW Coeff of Shruti (11.0-15.0) % Plt Count (150-400) K/uL MPV (7.40-12.00) fL Nucleated RBC % /100WBC Nucleated RBCs # K/uL Sodium (136-146) mmol/L Potassium (3.5-5.1) mmol/L Chloride (98-110) mmol/L Carbon Dioxide (21-31) mmol/L BUN (6.0-23.0) mg/dL Creatinine (0.6-1.5) mg/dL Est Cr Clr Drug Dosing mL/min Estimated GFR (MDRD) ml/min Glucose (60-110) mg/dL POC Glucose 87 (60-110) mg/dL Calcium (8.8-10.8) mg/dL Troponin I (0.0-0.29) NG/ML Triglycerides (10-190) mg/dL Cholesterol (131-240) mg/dL LDL Cholesterol, Calc (60-180) mg/dL VLDL Cholesterol (5-55) mg/dL HDL Cholesterol (40-80) mg/dL Cholesterol/HDL Ratio (3.3-6.0) Med Orders - Current: Current Medications Acetaminophen (Tylenol) 650 mg PO Q4H PRN PRN Reason: Pain (Mild 1-3)/fever Last Admin: 08/31/17 12:08 Dose: 650 mg Albuterol/Ipratropium (Duoneb 3.0-0.5 Mg/3 Ml) 3 ml NEB Q4HRRT PRN PRN Reason: Shortness Of Breath/wheezing Enoxaparin Sodium (Lovenox) 40 mg SUBCUT DAILY [facility] Last Admin: 09/01/17 10:34 Dose: 40 mg Clindamycin Phosphate 300 mg/ (Premix) 50 mls @ 100 mls/hr IV Q6H [facility] Last Admin: 09/01/17 06:46 Dose: 100 mls/hr Sodium Chloride (Normal Saline) 1,000 mls @ 999 mls/hr IV ASDIRECTED [facility] Last Admin: 09/01/17 10:37 Dose: 999 mls/hr Sodium Chloride (Normal Saline) 1,000 mls @ 999 mls/hr IV ASDIRECTED [facility] Ketorolac Tromethamine (Toradol) 30 mg IVPUSH Q6H PRN PRN Reason: Pain Stop: 09/05/17 19:34 Last Admin: 08/31/17 22:10 Dose: 30 mg Ondansetron HCl (Zofran) 4 mg IVPUSH Q4H PRN PRN Reason: Nausea Sodium Chloride (Saline Flush) 10 ml FLUSH ASDIRECTED PRN PRN Reason: Keep Vein Open Sodium Chloride (Saline Flush) 2.5 ml FLUSH ASDIRECTED PRN PRN Reason: Keep Vein Open Discontinued Medications Sodium Chloride (Normal Saline) 1,000 mls @ 999 mls/hr IV .Bolus ONE Stop: 08/31/17 07:09 Last Admin: 08/31/17 06:10 Dose: 999 mls/hr Clindamycin Phosphate 300 mg/ (Sodium Chloride) 52 mls @ 100 mls/hr IV Q6H [facility] Last Admin: 08/31/17 07:04 Dose: Not Given Clindamycin Phosphate 300 mg/ (Premix) 50 mls @ 150 mls/hr IV ONETIME ONE Stop: 08/31/17 07:18 Last Admin: 08/31/17 07:07 Dose: 150 mls/hr Morphine Sulfate (Morphine) 2 mg IVPUSH Q2H PRN PRN Reason: Pain (severe 7-10) Stop: 09/01/17 09:49 - Exam General: Reports: Alert, Oriented HEENT: Reports: Other (tooth ache improving.) Neck: Reports: Supple, Trachea Midline Lungs: Reports: Clear to Auscultation, Normal Respiratory Effort Cardiovascular: Reports: Regular Rate, Regular Rhythm GI/Abdominal Exam: Normal Bowel Sounds, Soft Back Exam: Reports: Normal Inspection Extremities: Normal Inspection, Normal Range of Motion Skin: Reports: Warm, Dry, Intact *Q Meaningful Use (DIS) - VTE *Q VTE Criteria *Q: - Stroke *Q Stroke Criteria *Q: - AMI *Q AMI Criteria *Q: <Ge Jerez - Last Filed: 09/01/17 15:47> Discharge Summary - Discharge Diagnosis/Problem(s) (1) Hypotension SNOMED Code(s): 29787322 ICD Code: I95.9 - HYPOTENSION, UNSPECIFIED Status: Acute (2) Syncope SNOMED Code(s): 818372277 ICD Code: R55 - SYNCOPE AND COLLAPSE Status: Acute (3) Tooth pain SNOMED Code(s): 02777269 ICD Code: K08.89 - OTHER SPECIFIED DISORDERS OF TEETH AND SUPPORTING STRUCTURES Status: Acute - Discharge Summary/Plan Comment Discharge Summary/Plan Comment: Patient seen and examined , agree with discharge summary - Patient Data Vitals - Most Recent: Last Vital Signs Temp 98.2 F 09/01/17 07:58 Pulse 72 09/01/17 07:58 Resp 16 09/01/17 04:00 BP 94/55 L 09/01/17 07:58 Pulse Ox 93 L 09/01/17 04:00 Orthostatic Blood Pressure [ 102/77 Standing] Orthostatic Blood Pressure [ 105/61 Sitting] Orthostatic Blood Pressure [ 99/57 Supine] I&O - Last 24 hours: Intake & Output 09/01/17 09/01/17 09/01/17 06:59 14:59 22:59 Intake Total 50 Output Total 300 Balance -250 Lab Results - Last 24 hrs: Laboratory Results - last 24 hr 08/31/17 08/31/17 08/31/17 Range/Units 17:17 18:50 20:49 WBC (4.0-11.0) K/uL RBC (4.50-5.90) M/uL Hgb (13.0-17.0) g/dL Hct (38.0-50.0) % MCV (80.0-98.0) fL MCH (27.0-32.0) pg MCHC (31.0-37.0) g/dL RDW Std Deviation (28.0-62.0) fl RDW Coeff of Shruti (11.0-15.0) % Plt Count (150-400) K/uL MPV (7.40-12.00) fL Nucleated RBC % /100WBC Nucleated RBCs # K/uL Sodium (136-146) mmol/L Potassium (3.5-5.1) mmol/L Chloride (98-110) mmol/L Carbon Dioxide (21-31) mmol/L BUN (6.0-23.0) mg/dL Creatinine (0.6-1.5) mg/dL Est Cr Clr Drug Dosing mL/min Estimated GFR (MDRD) ml/min Glucose (60-110) mg/dL POC Glucose 75 83 (60-110) mg/dL Calcium (8.8-10.8) mg/dL Troponin I < 0.10 (0.0-0.29) NG/ML Triglycerides (10-190) mg/dL Cholesterol (131-240) mg/dL LDL Cholesterol, Calc (60-180) mg/dL VLDL Cholesterol (5-55) mg/dL HDL Cholesterol (40-80) mg/dL Cholesterol/HDL Ratio (3.3-6.0) 09/01/17 09/01/17 09/01/17 Range/Units 05:36 06:07 06:07 WBC 6.68 (4.0-11.0) K/uL RBC 4.76 (4.50-5.90) M/uL Hgb 15.1 (13.0-17.0) g/dL Hct 43.8 (38.0-50.0) % MCV 92.0 (80.0-98.0) fL MCH 31.7 (27.0-32.0) pg MCHC 34.5 (31.0-37.0) g/dL RDW Std Deviation 43.8 (28.0-62.0) fl RDW Coeff of Shruti 13 (11.0-15.0) % Plt Count 167 (150-400) K/uL MPV 10.30 (7.40-12.00) fL Nucleated RBC % 0.0 /100WBC Nucleated RBCs # 0 K/uL Sodium 140 (136-146) mmol/L Potassium 4.2 (3.5-5.1) mmol/L Chloride 108 (98-110) mmol/L Carbon Dioxide 25 (21-31) mmol/L BUN 17 (6.0-23.0) mg/dL Creatinine 1.0 (0.6-1.5) mg/dL Est Cr Clr Drug Dosing 97.26 mL/min Estimated GFR (MDRD) > 60.0 ml/min Glucose 93 (60-110) mg/dL POC Glucose 91 (60-110) mg/dL Calcium 8.6 L (8.8-10.8) mg/dL Troponin I (0.0-0.29) NG/ML Triglycerides 85 (10-190) mg/dL Cholesterol 138 (131-240) mg/dL LDL Cholesterol, Calc 87 (60-180) mg/dL VLDL Cholesterol 17 (5-55) mg/dL HDL Cholesterol 34 L (40-80) mg/dL Cholesterol/HDL Ratio 4.1 (3.3-6.0) 09/01/17 Range/Units 11:26 WBC (4.0-11.0) K/uL RBC (4.50-5.90) M/uL Hgb (13.0-17.0) g/dL Hct (38.0-50.0) % MCV (80.0-98.0) fL MCH (27.0-32.0) pg MCHC (31.0-37.0) g/dL RDW Std Deviation (28.0-62.0) fl RDW Coeff of Shruti (11.0-15.0) % Plt Count (150-400) K/uL MPV (7.40-12.00) fL Nucleated RBC % /100WBC Nucleated RBCs # K/uL Sodium (136-146) mmol/L Potassium (3.5-5.1) mmol/L Chloride (98-110) mmol/L Carbon Dioxide (21-31) mmol/L BUN (6.0-23.0) mg/dL Creatinine (0.6-1.5) mg/dL Est Cr Clr Drug Dosing mL/min Estimated GFR (MDRD) ml/min Glucose (60-110) mg/dL POC Glucose 87 (60-110) mg/dL Calcium (8.8-10.8) mg/dL Troponin I (0.0-0.29) NG/ML Triglycerides (10-190) mg/dL Cholesterol (131-240) mg/dL LDL Cholesterol, Calc (60-180) mg/dL VLDL Cholesterol (5-55) mg/dL HDL Cholesterol (40-80) mg/dL Cholesterol/HDL Ratio (3.3-6.0) Med Orders - Current: Current Medications Discontinued Medications Acetaminophen (Tylenol) 650 mg PO Q4H PRN PRN Reason: Pain (Mild 1-3)/fever Last Admin: 08/31/17 12:08 Dose: 650 mg Albuterol/Ipratropium (Duoneb 3.0-0.5 Mg/3 Ml) 3 ml NEB Q4HRRT PRN PRN Reason: Shortness Of Breath/wheezing Enoxaparin Sodium (Lovenox) 40 mg SUBCUT DAILY [facility] Last Admin: 09/01/17 10:34 Dose: 40 mg Sodium Chloride (Normal Saline) 1,000 mls @ 999 mls/hr IV .Bolus ONE Stop: 08/31/17 07:09 Last Admin: 08/31/17 06:10 Dose: 999 mls/hr Clindamycin Phosphate 300 mg/ (Sodium Chloride) 52 mls @ 100 mls/hr IV Q6H [facility] Last Admin: 08/31/17 07:04 Dose: Not Given Clindamycin Phosphate 300 mg/ (Premix) 50 mls @ 150 mls/hr IV ONETIME ONE Stop: 08/31/17 07:18 Last Admin: 08/31/17 07:07 Dose: 150 mls/hr Clindamycin Phosphate 300 mg/ (Premix) 50 mls @ 100 mls/hr IV Q6H [facility] Last Admin: 09/01/17 06:46 Dose: 100 mls/hr Sodium Chloride (Normal Saline) 1,000 mls @ 999 mls/hr IV ASDIRECTED [facility] Last Admin: 09/01/17 10:37 Dose: 999 mls/hr Sodium Chloride (Normal Saline) 1,000 mls @ 999 mls/hr IV ASDIRECTED [facility] Ketorolac Tromethamine (Toradol) 30 mg IVPUSH Q6H PRN PRN Reason: Pain Stop: 09/05/17 19:34 Last Admin: 08/31/17 22:10 Dose: 30 mg Morphine Sulfate (Morphine) 2 mg IVPUSH Q2H PRN PRN Reason: Pain (severe 7-10) Stop: 09/01/17 09:49 Ondansetron HCl (Zofran) 4 mg IVPUSH Q4H PRN PRN Reason: Nausea Sodium Chloride (Saline Flush) 10 ml FLUSH ASDIRECTED PRN PRN Reason: Keep Vein Open Sodium Chloride (Saline Flush) 2.5 ml FLUSH ASDIRECTED PRN PRN Reason: Keep Vein Open *Q Meaningful Use (DIS) - VTE *Q VTE Criteria *Q: - Stroke *Q Stroke Criteria *Q: - AMI *Q AMI Criteria *Q:
== END 2017-09-01 13:30 | disposition home or self-care (01) ==
LOC: MW.ED 05:47 → MW.MS 07:25
PROVIDERS: ADMIT Internal Medicine; ATTEND Internal Medicine
DX: I95.9 Hypotension, unspecified (principal); K08.89 Other specified disorders of teeth and supporting structures; R55 Syncope and collapse
CPT/HCPCS: 36415; 70450; 71010; 80048; 80053; 80061; 81001; 82962; 84484; 85025; 85027; 93005; 96361; 96365; 96366; 96372; 96375; 96376; 99285; A9270; G0378; J1650; J1885; J7040; 96374; 99284